=== PATIENT | female | born 1980 ===

== ENCOUNTER 2023-08-01 06:01 | Day surgery (SDC) | payer OTHER ==
[2023-07-29 10:04] LABS: PH,URINE 6.5 (5.0-8.0); URINE APPEARANCE Clear; URINE BILIRRUBIN Negative (NEGATIVE); URINE BLOOD Trace; URINE COLOR Yellow; URINE GLUCOSE Negative (NEGATIVE); URINE LEUKOCYTE Negative; URINE NITRATE Negative; URINE PROTEIN Negative (NEGATIVE)
[2023-07-29 10:07] LABS: URINE RBC 16.2 uL (0.0-20.8)
[2023-07-29 10:21] LABS: URINE WBC 0.6 uL (0.0-23.2)
[2023-07-29 10:46] LABS: HEMATOCRIT 38.9 % (36.0-45.00); HEMOGLOBIN 13.5 g/dL (12.0-15.00); MEAN CELL VOLUME 86.2 fL (80.00-100.00); MEAN CORPUSCULAR HEMOGLOBIN 29.9 pg (27.00-32.0); MEAN CORPUSCULAR HGB CONC 34.6 g/dl (32.0-36.0); PLATELET COUNT 216 K/uL (150-450); RED BLOOD COUNT 4.52 M/uL (4.00-6.00); RED CELL DISTRIBUTION WIDTH 12.8 % (11.5-14.5)
[2023-07-29 11:00] LABS: INR 0.97; PARTIAL THROMBOPLASTIN TIME 30.5 SECONDS (22.0-34.0); PROTHROMBIN TIME 10.2 SECONDS (9.0-11.5)
[2023-07-29 11:07] LABS: ALBUMIN 3.6 gm/dL (3.4-5.0); BILIRUBIN TOTAL 0.44 mg/dL (0.3-1.2); CALCIUM 9.2 mg/dL (8.5-10.1); CREATININE SERUM 0.62 mg/dL (0.55-1.02); GFR 105.06; GLOBULINA 4.1 G/DL (2.4-3.5); POTASSIUM 3.93 mEq/L (3.5-5.1); TOTAL PROTEIN 7.7 gm/dL (6.4-8.2)
[~2023-08-01] VITALS: Ht 149.9 cm; Wt 59.0 kg
[~2023-08-01 06:01] MED LIST: LEXAPRO5 MG PO
[2023-08-01] MEDS ORDERED: MORGIDOX100 MG PO (13:15)
[2023-08-01] MEDS ORDERED: TRAM1TAB98 PO (13:15)
== END 2023-08-01 16:10 | disposition home or self-care (01) ==
LOC: CIR.AMB 06:01
PROVIDERS: ATTEND Obstetrics & Gynecology
DX: N92.1 Excessive and frequent menstruation with irregular cycle (principal); N84.0 Polyp of corpus uteri; Z88.6 Allergy status to analgesic agent; A63.0 Anogenital (venereal) warts